=== PATIENT | male | born 2000 | race Caucasian/White ===

== ENCOUNTER 2020-07-09 13:10 | Outpatient (CLI) | payer OTHER ==
[2020-07-09] MEDS ORDERED: LIDOCAINE-MPF 1%, 5ML ONE (13:37)
[2020-07-09] MEDS ORDERED: OMNIPAQUE 300 MG/ML, 10ML VIAL ONE (14:00)
[2020-07-09] MEDS ORDERED: GADOTERATE 2.5 MMOL/5 ML VIAL ONE (14:00)
[2020-07-09] MEDS ORDERED: LIDOCAINE 1%, 10ML ONE (14:14)
[2020-07-09] MEDS ORDERED: OMNIPAQUE 350 MG/ML, 50 ML BOTTLE ONE (14:45)
[2020-07-09] MEDS ORDERED: GADOBUTROL 10 MMOL/10 ML VIAL ONE (14:45)
== END 2020-07-09 23:59 | disposition home or self-care (01) ==
LOC: RAD 13:10
PROVIDERS: ATTEND Orthopaedic Surgery
DX: M25.552 Pain in left hip (principal); M25.551 Pain in right hip; G89.29 Other chronic pain; S73.191A Other sprain of right hip, initial encounter; S73.192A Other sprain of left hip, initial encounter; M25.852 Other specified joint disorders, left hip; M25.851 Other specified joint disorders, right hip; X58.XXXA Exposure to other specified factors, initial encounter; Y93.89 Activity, other specified; Y92.89 Other specified places as the place of occurrence of the external cause; Y99.8 Other external cause status
CPT/HCPCS: 27093; 73525; 73722; A9575; A9585; Q9967